=== PATIENT | male | born 1965 | race Two or more races ===

== ENCOUNTER 2024-06-15 08:59 | Day surgery (SDC) | payer OTHER, MEDICAID ==
[~2024-06-15] VITALS: Ht 167.6 cm; Wt 78.0 kg
[2024-06-15] VITALS (9 sets, daily range): BP systolic 90–108; BP diastolic 45–68; PULSE 65–74; RESP 13–20; TEMP 97.6; O2SAT 93–99
[~2024-06-15 08:59] MED LIST: ATOR10TA52 PO; CARV3.1240 PO; CHOL20007 PO; DOCU-265 PO; EMPA1TAB PO; FENO48TA13 PO; GABA-1250 PO; HYDR5CRE3 PR; PAR20T PO; SACU1TAB PO; TICA90TA PO
[2024-06-15] MEDS ORDERED: ANGIOMAX 250 MG VIAL IV ONE (13:39)
[2024-06-15] MEDS ORDERED: HEPARIN SODIUM (PORCINE) 5000 UNITS/ML 1ML VIAL ONE (13:39)
[2024-06-15] MEDS ORDERED: VERAPAMIL 2.5MG/ML INJ 2ML VIAL IV ONE (13:39)
[2024-06-15] MEDS ORDERED: SODIUM CHL 0.9% 50 ML ONE (13:40)
[2024-06-15] MEDS ORDERED: MIDAZOLAM HCL 2MG/2ML 2ml VIAL (1mg/ml) ONE (13:40)
[2024-06-15] MEDS ORDERED: LIDOCAINE 2%HCL (LOCAL ANESTH.) INJ 10ml MDV ONE ×2 (13:40→14:03)
[2024-06-15] MEDS ORDERED: fentaNYL CITRATE 100 MCG/2 ML VL ONE (13:40)
[2024-06-15] MEDS ORDERED: IODIXANOL 320MG/ML 100ML BTL IV ONE ×3 (14:03→14:53)
[2024-06-15] MEDS ORDERED: ATROPINE SULF 1 MG/10ml SYR ONE (14:48)
[2024-06-15] MEDS ORDERED: CLOPIDOGREL BISULFATE 75 MG TAB ONE (15:07)
[2024-06-15] MEDS ORDERED: ASPirin 325 MG TAB ONE (15:07)
--- NOTE | 2024-06-15 15:42 | DVHOP2 ---
Operative Report -Cardiology Report Details Date: 06/15/24 Preop Diagnosis: CAD Postop Diagnosis: CAD. Successful PTCA and stenting of the RCA. ([employer]ELOPER) Surgeon: Rose Waddell MD Anesthesiologist: Conscious sedation Anesthesia: Mac, Local Consent: The patient was informed of the risks and benefits of the procedure. These include but are not limited to complications of anesthesia, postoperative infection, incomplete relief of symptoms, recurrence of symptoms, damage to blood vessels, nerves and tendons, deep venous thrombosis, pulmonary embolism and possible need for repeat surgery in the future. Complications: No complications Findings: Severe CAD Indications for Surgery: SEVERE CHEST PAIN Name of Procedure Performed BILATERAL CINE CORONARY ANGIOGRAPHY. LEFT VENTRICULOGRAPHY. PTCA and stenting of RCA. Procedure Details Procedure Details: Prior local anesthesia with 2% lidocaine to the right groin full informed consent obtained the patient was prepped and draped in usual fashion followed by placement of a six [place] sheath into the right femoral artery through a six [place] Kane catheters were used to cannulate both arm and left coronary ostium and a six [place] pigtail catheter was used for ventriculography. Is three five EBU guiding catheter was used for angioplasty of the RCA Hemodynamics: Aortic blood pressure was 130/70 end-diastolic pressure was five. There was no gradient across the aortic valve on pullback Coronary anatomy the RCA is a large vessel it is occluded at its proximal to mid segment. It reconstitutes via intracoronary collateral from the acute marginal branch. PDA and posterolateral branches are medium caliber vessels but are patent. Left main is large and normal. Lad is occluded proximally. The circumflex is a large vessel 1st marginal branch has an 80% stenosis however competitive flow is noted from a saphenous graft. The left internal mammary artery to the LAD is patent. Retrograde flow to the proximal LAD and diagonal are noted. Ventriculography in the DEMARCO projection shows an EF of 55%. Ad Hoc angioplasty was performed for which a three five EBU as mentioned was placed into the RCA. A microcatheter was used, a fine cross in three was used and a pro via three wire was used across the area of stenosis. We were able to pass the microcatheter and exchanged wires for a Specter wire. We then placed a two 5 x 12 mm balloon subsequently a two 5 x 18 mm claudia drug-eluting stent by [employer] at approximately 14 atmospheres. There was excellent antegrade flow without thrombus formation dissection. We also dilated the ostial RCA wheelchair previously been stented and there was a certain degree of in stent restenosis.. Impression: Normal left ventricular end-diastolic pressure restaurant ejection fraction. Patent left internal mammary artery of the LAD. Patent saphenous graft to the marginal. Occluded RCA with intracoronary flow to the distal RCA. Successful aperture a [employer] of proximal RCA. Notably improved coronary flow from 0 to SANDRA three flow. Normal ejection fraction. Recommendations: Medical therapy is warranted continue risk factor modification. Dual antiplatelet therapy. Disposition Home ROSE WADDELL Sr., MD Jun 15, 2024 15:42
== END 2024-06-15 17:28 | disposition home or self-care (01) ==
LOC: CATH 08:59
PROVIDERS: ATTEND Internal Medicine
DX: I25.10 Atherosclerotic heart disease of native coronary artery without angina pectoris (principal); I50.9 Heart failure, unspecified; I25.82 Chronic total occlusion of coronary artery
CPT/HCPCS: 93459; C1725; C1769; C1874; C1887; C1894; C9600; J0583; J1644; J2003; J2250; J3010; Q9967; 93458; 99152